=== PATIENT | female | born 1980 | race Two or more races ===

== ENCOUNTER 2024-07-12 12:30 | Emergency (ER) | payer OTHER ==
[~2024-07-12] VITALS: Ht 175.3 cm; Wt 76.7 kg
[~2024-07-12 12:30] MED LIST: ANTIVERT12.5 MG PO
[2024-07-12 12:49] VITALS: BP 139/93; O2SAT 100
[2024-07-12] MEDS ORDERED: DEXAMETHASONE SODIUM PHOSPHATE 4 MG/ML VIAL IV STA (13:12)
[2024-07-12] MEDS ORDERED: ORPHENADRINE CITRATE 30 MG/ML AMPUL IV STA (13:12)
[2024-07-12] MEDS ORDERED: KETOROLAC TROMETHAMINE 30 MG VIAL IV STA (13:12)
[2024-07-12] MEDS ORDERED: ORPHENADRINE CITRATE 30 MG/ML AMPUL ONE (13:20)
[2024-07-12] MEDS ORDERED: KETOROLAC TROMETHAMINE 30 MG VIAL ONE (13:20)
[2024-07-12] MEDS ORDERED: DEXAMETHASONE SODIUM PHOSPHATE 4 MG/ML VIAL ONE (13:21)
[2024-07-12 13:50] LABS: HEMATOCRIT 39.5 % (36.0-45.00); HEMOGLOBIN 13.3 g/dL (12.0-15.00); MEAN CELL VOLUME 88.7 fL (80.00-100.00); MEAN CORPUSCULAR HEMOGLOBIN 29.8 pg (27.00-32.0); MEAN CORPUSCULAR HGB CONC 33.5 g/dl (32.0-36.0); PLATELET COUNT 231 K/uL (150-450); RED BLOOD COUNT 4.46 M/uL (4.00-6.00); RED CELL DISTRIBUTION WIDTH 13.7 % (11.5-14.5)
[2024-07-12 14:17] LABS: BILIRUBIN TOTAL 0.91 mg/dL (0.3-1.2); CALCIUM 9.5 mg/dL (8.5-10.1); CREATININE SERUM 0.72 mg/dL (0.55-1.02); GFR 88.41; GLOBULINA 3.9 G/DL (2.4-3.5); POTASSIUM 4.91 mEq/L (3.5-5.1); TOTAL PROTEIN 7.9 gm/dL (6.4-8.2)
[2024-07-12 14:19] LABS: URINE APPEARANCE Cloudy; URINE BILIRRUBIN Negative (NEGATIVE); URINE BLOOD Negative; URINE COLOR Yellow; URINE GLUCOSE Negative (NEGATIVE); URINE KETONE Negative (NEGATIVE); URINE LEUKOCYTE Negative; URINE NITRATE Negative; URINE PROTEIN Negative (NEGATIVE)
[2024-07-12 14:23] LABS: URINE BACTERIA 3624.1 uL (0.0-1933); URINE RBC 3.2 uL (0.0-20.8); URINE WBC 41.3 uL (0.0-23.2)
[2024-07-12 15:01] LABS: URINE EPITHELIAL CELLS > 201.7 uL (0.0-38.8)
[2024-07-12] MEDS ORDERED: DUI500 PO (15:46)
== END 2024-07-12 16:04 | disposition home or self-care (01) ==
LOC: ER 12:33
DX: R39.89 Other symptoms and signs involving the genitourinary system (principal)